=== PATIENT | female | born 1975 | race Caucasian/White ===

== ENCOUNTER 2020-02-22 03:01 | Inpatient (IN) | payer SELFPAY ==
[2020-02-22] MEDS: ziprasidone 20 mg/mL SDV (03:50)
[2020-02-22 06:18] LABS: Acetaminophen < 5.0 ug/mL (10-30); Alanine Aminotransferase 16 U/L (0-33); Albumin Level 4.5 g/dL (3.5-5.2); Alcohol Level < 10 mg/dL (0-10); Alkaline Phosphatase 95 IU/L (35-105); Anion Gap 14.9 (5-19); Aspartate Amino Transferase 25 U/L (0-32); Blood Urea Nitrogen 6 mg/dL (6-20); Calcium 9.3 mg/dL (8.5-10.5); Carbon Dioxide 30 mmol/L (22-29); Chloride 101 mmol/L (98-107); Globulin 2.5 g/dL (1.3-4.6); Glomerular Filtration Rate 109.1 mL/min (90-130); Glucose 111 mg/dL (65-115); HCG Qualitative Urine. Negative (Negative); Osmolality Calculated 294 mOsm/kg (285-295); Salicylate 16.5 mg/dL (3-10); Sodium 143 mmol/L (136-145); Total Bilirubin 0.2 mg/dL (0.15-1.2)
[2020-02-22 06:19] LABS: Potassium 2.9 mmol/L (3.5-5.1)
[2020-02-22 06:21] LABS: Basophils # 0.1 10^3/uL (0.0-0.1); Basophils % 0.8 %; Eosinophils # 0.1 10^3/uL (0.0-0.8); Eosinophils % 1.5 %; Hematocrit 38.6 % (37.0-47.0); Hemoglobin 12.6 g/dL (11.5-15.3); Lymphocytes # 2.9 10^3/uL (0.8-4.8); Lymphocytes % 32.2 %; Mean Corpuscular HGB Conc 32.6 g/dL (30.0-36.0); Mean Corpuscular Hemoglobin 33.7 pg (28.0-34.0); Mean Corpuscular Volume 103.2 fL (81-99); Monocytes # 0.7 10^3/uL (0.2-0.9); Monocytes % 7.2 %; Neutrophils # 5.26 10^3/uL (1.8-7.7); Nucleated Red Blood Cells % 0 %; Platelet Count 503 10^3/cmm (130-400); Red Blood Count 3.74 10^6/uL (4.1-5.3); Red Cell Distribution Width 12.7 % (12.1-15.1); White Blood Count 9.1 10^3/uL (4.0-10.0)
--- NOTE | 2020-02-22 06:31 | ED_ITS ---
HPI - Psych General: Stated Complaint: DEMONIC POSSESION Time Seen by Provider: 02/22/20 05:34 History of Present Illness: HPI Narrative: 44-year-old female with a history of psychiatric problems. She presents stating that she is possessed by a demon, and wants rid of the demon. She is agitated. She states that she may harm herself if she cannot rid herself of the demon. She denies any other recent illness such as cough, fever, diarrhea, etc. MD complaint: feels depressed and other Onset (ago): hour(s) Duration: constant History of same: Yes Relieving factors: none Exacerbating factors: none Context: not taking psychiatric medications Associated psychiatric symptoms: depression, suicidal ideation, auditory hallucinations and visual hallucinations Associated symptoms: Reports auditory hallucinations, visual hallucinations and delusions If self harm: admits thoughts of self harm Review of Systems Const: Denies: fever(s) or chills Eyes: Denies: change in vision or blurry vision ENMT: Denies: odynophagia or sinus pain Card: Denies: chest pain, palpitations or irregular heart rhythm Resp: Denies: dyspnea, productive cough, non-productive cough or wheezing GI: Denies: abdominal pain, nausea or vomiting : Denies: dysuria or urinary frequency Musc: Denies: neck pain or joint warmth Skin/Breast: Denies: rash or erythema Neuro: Denies: headache(s), dizziness or vertigo Psych: Reports: visual hallucinations and auditory hallucinations Physical Exam Const: GENERAL APPEARANCE: well developed ORIENTATION/CONSCIOUSNESS: Yes oriented to person and Yes oriented to place; not oriented to time HENMT: COMMON NORMALS: normocephalic, external ears normal and Normal external nose present HEAD & SCALP: normocephalic FACE & SINUS: normal facial exam NOSE: Normal external nose present and No nasal discharge present EXTERNAL EAR: Yes external ears normal Eye: COMMON NORMALS: Equal, round and reactive pupils present, EOMs intact bilaterally and conjunctivae normal EYELID: eyelids normal CONJUNCTIVA: Yes conjunctivae normal PUPIL: Yes Equal, round and reactive pupils present Neck/C-Spine: COMMON NORMALS: full ROM GENERAL: No tracheal deviation CERVICAL SPINE: Yes normal cervical lordosis and No Cervical spine tenderness Chest: COMMONS NORMALS: normal inspection of the chest CHEST: No tenderness Resp: COMMON NORMALS: clear to auscultation bilaterally EFFORT & INSPECTION: No tachypneic, No respiratory distress, No retractions, No uses accessory muscles and No tracheal deviation AUSCULTATION: clear to auscultation bilaterally, no rhonchi, no wheezes and lung sounds not diminished Cardio: COMMON NORMALS: regular rate and regular rhythm RATE: regular rate RHYTHM: regular rhythm HEART SOUNDS: no murmurs PERIPHERAL PULSES: radial pulses present GI: INSPECTION: No abdominal distension AUSCULTATION: No Hyperactive bowel sounds present and No Hypoactive bowel sounds present PALPATION: No Guarding due to palpation present (GI) and No Rigid due to palpation PERCUSSION: no dullness to percussion and no tympanic to percussion Neuro: SENSORIUM/ORIENTATION: Yes oriented to person, Yes oriented to place and No oriented to time Psych: APPEARANCE: Yes unkempt ATTITUDE: Yes paranoid and Yes evasive ACTIVITY/MOTOR BEHAVIOR: Yes psychomotor agitation, Yes fidgeting and Yes disorganized behavior SPEECH: Yes excessive MOOD & AFFECT: Yes anxious and Yes fearful THOUGHT PROCESS: Circumstantial thought process present and Loose association thought process present THOUGHT CONTENT: Yes Suicidality present and Yes delusions Skin: COMMON NORMALS: no rashes or lesions noted GENERAL SKIN EXAM: no rashes or lesions noted MDM - Psych MDM Narrative: Medical decision making narrative: Potassium is 2.9 which is being repleted. Other laboratory is benign. Awaiting a urine drug screen. Her alcohol level is nondetectable. She is otherwise medically stable for psychiatry admission. Lab Data: Labs: Lab Results 02/22/20 02/22/20 02/22/20 Range/Units 03:10 03:10 03:10 WBC 9.1 (4.0-10.0) 10^3/ uL RBC 3.74 L (4.1-5.3) 10^6/u L Hgb 12.6 (11.5-15.3) g/dL Hct 38.6 (37.0-47.0) % MCV 103.2 H (81-99) fL MCH 33.7 (28.0-34.0) pg MCHC 32.6 (30.0-36.0) g/dL RDW 12.7 (12.1-15.1) % Plt Count 503 H (130-400) 10^3/c mm MPV 10.0 (7.4-10.4) fL Neut % (Auto) 58.0 % Lymph % (Auto) 32.2 % [place] % (Auto) 7.2 % Eos % (Auto) 1.5 % Baso % (Auto) 0.8 % Neut # (Auto) 5.26 (1.8-7.7) 10^3/u L Lymph # (Auto) 2.9 (0.8-4.8) 10^3/u L [place] # (Auto) 0.7 (0.2-0.9) 10^3/u L Eos # (Auto) 0.1 (0.0-0.8) 10^3/u L Baso # (Auto) 0.1 (0.0-0.1) 10^3/u L Nucleated RBC % (a uto) 0 % Nucleated RBCs # 0.0 /100WBC Sodium 143 (136-145) mmol/L Potassium 2.9 L (3.5-5.1) mmol/L Chloride 101 (98-107) mmol/L Carbon Dioxide 30 H (22-29) mmol/L Anion Gap 14.9 (5-19) BUN 6 (6-20) mg/dL Creatinine 0.6 (0.5-0.9) mg/dL GFR Calculation 109.1 (90-130) mL/min Glucose 111 (65-115) mg/dL Calculated Osmolal ity 294 (285-295) mOsm/k g Calcium 9.3 (8.5-10.5) mg/dL Total Bilirubin 0.2 (0.15-1.2) mg/dL AST 25 (0-32) U/L ALT 16 (0-33) U/L Alkaline Phosphata se 95 (35-105) IU/L Total Protein 7.0 (6.6-8.7) g/dL Albumin 4.5 (3.5-5.2) g/dL Globulin 2.5 (1.3-4.6) g/dL HCG, Qual Negative (Negative) Salicylates 16.5 H (3-10) mg/dL Acetaminophen < 5.0 L (10-30) ug/mL Ethyl Alcohol < 10 (0-10) mg/dL Coding Level of Care Code ED Flange Machine Operator for Chg Magalis
[2020-02-22 06:40] LABS: Amphetamines Screen Urine Negative (Negative); Barbiturates Screen Urine Negative (Negative); Benzodiazepines Screen Urine Positive (Negative); Cocaine Screen Urine Negative (Negative); Opiate Screen Urine Negative (Negative); PCP Screen Urine Negative (Negative); THC Screen Urine Negative (Negative)
[2020-02-22 07:20] LABS: Protein Urine Neg (Negative); Urine Appearance Hazy (CLEAR); Urine Color Yellow (Yellow); pH Urine 9 (5-7)
[2020-02-22 07:21] LABS: Add Urine Microscopic? YES; Bilirubin Urine Neg (Negative); Blood Urine 3+ (Negative); Glucose Urine UA Norm (Normal); Ketones Urine 1+ (Negative); Leukocyte Esterase Urine Trace (Negative); Nitrate Urine Negative (Negative); Urobilinogen Urine Norm (Negative)
[2020-02-22 07:22] LABS: Add Urine Culture? No; Bacteria Urine 1+ /hpf; Mucus Urine TRACE /hpf; RBC Urine 0-4 /hpf (0-2)
[2020-02-22 07:28] VITALS: BP 114/73; PULSE 81; RESP 18; TEMP 36.9; O2SAT 98
[2020-02-22 07:43] VITALS: BP 114/73; PULSE 81; RESP 18; TEMP 36.9; O2SAT 98
--- NOTE | 2020-02-22 08:12 | PC.NURSE ---
Pt was woken up to give PO Potassium, stated she wanted to leave because she has a 3 year old child at home that is being taken care of by her 15 year old child. Pt then placed on [address] Morocho, correct address obtained from pt and [place] [employer] called for well-being check on pt's children. NPU updated on pt status.
--- NOTE | 2020-02-22 08:12 | PC.NURSE ---
patient stated she could not stay bc/ she had a 3 year old son at home being cared for by her 15 year old daughter, she was not [address] garcia made decision to hold her she then stated that her daughter in [place] would come and take care of child 22 years, also stated grandparents lived across road, will call [facility] to inform and do a well being check
[2020-02-22 08:32] VITALS: BP 128/87; PULSE 75; RESP 20; TEMP 36.8; O2SAT 100
[2020-02-22 14:00] VITALS: BP 113/79; PULSE 74; RESP 18; TEMP 36.8; O2SAT 96
--- NOTE | 2020-02-22 14:55 | P.HP_ITS ---
Providers/Chief Complaint Admitting Physician: Eugene Arthur MD Chief Complaint: DEMONIC POSSESION HPI NPU History of Present Illness Mariya Abad is a 44 year old female who presented to the emergency room with the following report: HPI - Psych General: Stated Complaint: DEMONIC POSSESION Time Seen by Provider: 02/22/20 05:34 History of Present Illness: HPI Narrative: 44-year-old female with a history of psychiatric problems. She presents stating that she is possessed by a demon, and wants rid of the demon. She is agitated. She states that she may harm herself if she cannot rid herself of the demon. She denies any other recent illness such as cough, fever, diarrhea, etc. complaint: feels depressed and other Onset (ago): hour(s) Duration: constant History of same: Yes Relieving factors: none Exacerbating factors: none Context: not taking psychiatric medications Associated psychiatric symptoms: depression, suicidal ideation, auditory hallucinations and visual hallucinations Associated symptoms: Reports auditory hallucinations, visual hallucinations and delusions If self harm: admits thoughts of self harm. And this addendum:: Dr. Chao had seen this patient and the patient was set up to be admitted I had written basic admission orders for the patient care transferred to the NPU. Staff informed me that the patient made a phone call that she has a 3-year-old at home and is being watched by a 15-year-old in no other adults. Based on that the staff call [facility] to make a hotline report to do a welfare check. In addition that patient began talking about wanting to go home I went and interviewed the patient she endorsed what Dr. Chao had verbally reported. She stated she has demons in her home and at times feels she is possessed by a demon. She states she can hear the demon and occasionally see the demon in her home. She tells me a few days ago she had a cold press loader at her home who blaster house however it did not work and the demon is still there. She also admits to having previously been hospitalized surrounding similar issues. Based on what she reported to me 96-ho ur hold affidavit was completed and filed. She was admitted to the neuropsychiatric unit for the definitive treatment of those issues. She presents today reporting that she has had previous hospital izations, [place] [facility] She presents today having recent psychosis and reporting that she has not been taking her medication. She reports previously being on multiple psychiatric medications and recently that being changed to Seroquel and propranolol but not looking to be doses that can really change or manage his psychosis. She endorses a history of addiction but denies recent addiction at a level which might impact psychosis. She reports that this demonic experience she has of having demons take over her started years ago and is unclear if it ever has been truly ameliorated by the medication. She endorses that she is does smoke, endorses limited alcohol use or marijuana use denies current illicit drug use. She is positive for benzodiazepines but cannot answer whether withdrawal from benzodiazepines could be a factor here. In keeping with her report her UDS had previously been positive for cannabis back in June and was only positive for the benzodiazepines now as well as then. She denies previous suicide attempt. Psychiatric history: As above. Substance abuse history: As above. Family history: She denies significant contributory family history. Developmental history: She denies issues with her mother's with her or /delivery. She learned to walk and talk to met her developmental milestones on time. She denies any speech therapy, learning support, emotional support or special education classes. Psychosocial history: She reports that her parents were together when she was born but eventually split up. She reports that she has 4 siblings both full and half. She reports her childhood was unremarkable and denied emotional, physical or sexual abuse then or significantly in her life. She did not graduate from high school, not in training, reports being a heterosexual with her longest relationship being over 15 years. She been 1 time and once. She has 2 children. She is never been in the . She denies major involvement in any voodoo activities. Legal history: Reports she been in group home multiple times the longest I may be being a couple months. Medical history: She denies significant contributory medical history. Meds NPU Home Medications Medication Instructions Recorded Confirmed Last Taken Type propranolol [Inderal] 10 mg PO TID 02/22/20 02/22/20 Unknown History quetiapine [Seroquel] 25 - 50 mg PO BID 02/22/20 02/22/20 Unknown History Allergies Allergy/AdvReac Type Severity Reaction Status Date / Time No Known Allergies Allergy Verified 02/22/20 05:41 Mental Status Exam MSE Comments: This is an underweight -Romanian female with limited dress, grooming and eye contact. No abnormal movements except for psychomotor retardation. Cooperative with exam in mild distress. Speech was decreased rate and volume. Mood described as depressed, affect congruent. Thought process organized. Thought content: Patient denied current suicidal or homicidal ideation, there were no delusions reported but hyperreligious delusions and concerns of demons noted, there is some auditory visual hallucinations but she does not appear to be attending to internal stimuli. Attention and concen tration were intact and memory was mostly reliable but none were formally tested. She is alert and oriented x3. Insight and judgment are limited, impulse control is impaired. Vitals/I&O/Wt Last Vital Signs Temp 98.2 F 02/22/20 21:38 Pulse 74 02/22/20 21:38 Resp 15 02/22/20 21:38 BP 133/87 02/22/20 21:38 Pulse Ox 96 02/22/20 21:38 Data NPU : 02/22/20 03:10 02/22/20 03:10 A&P Assessment and plan (1) Acute psychosis: Status: Acute (2) Benzodiazepine use agreement exists: Status: Acute (3) History of psychosis: Status: Acute Additional A&P Information This is a 44-year-old female with a history of psychosis and addiction who presents with a UDS only positive for benzodiazepines endorsing struggles with demons off of her medication. 1. Continue current medication. We will start Abilify 10 mg p.o. every morning in the morning. 2. Continue every 15 minute checks for safety. 3. Encourage individual, group and milieu therapy. 4. Explore the possible impact of benzodiazepines on her mental status as well as identify whether there might be agents that are not detected by our drug screens that could be impacting her. Involuntary Hold Information 96 Hour Hold: 96 Hour Involuntary Admission: Yes 96 Hour Hold Ending Date: 02/29/20 96 Hour Hold Ending Time: 08:00 Attestations NPU Medical Necessity Statement*: Inpatient hospitalization is medically necessary and the clinically appropriate intervention at this time. We will monitor medications and make changes as indicated. She will be in the hospital for over 2 midnights. Likely length of stay 3 to 5 days. Coding Level of Care Code Acute Tray Line Supervisor for Rupa Blancas Diagnoses Acute psychosis F23 Benzodiazepine use agreement exists Z79.899 History of psychosis Z86.59
[2020-02-22] MEDS: trazodone 50 mg Tablet PO (19:30)
[2020-02-22] MEDS: hyDROXYzine 25 mg Capsule 50 MG PO (19:30)
[2020-02-22 21:38] VITALS: BP 133/87; PULSE 74; RESP 15; TEMP 36.8; O2SAT 96
[2020-02-23 06:00] VITALS: BP 128/81; PULSE 75; RESP 14; TEMP 36.9; O2SAT 95
[2020-02-23] MEDS: ARIPiprazole 10 mg Tablet PO (08:55)
[2020-02-23] MEDS: hyDROXYzine 25 mg Capsule 50 MG PO ×2 (09:32→22:52)
--- NOTE | 2020-02-23 11:20 | PM.NPN ---
Subjective NPU Subjective: Interval history: Summer presents today reporting that she is feeling a little better with the medication. She is getting a benzodiazepine from a local provider. We agreed that we would have the treatment team attempt to confirm the medication and if she is on it resume that medication. Otherwise she reports that things are going okay and that she is hoping the Abilify will be helpful because she feels like her medication be changed frequently and the only thing that she feels has been effective had not been done. Otherwise she is sleeping okay and eating well. Mental Status Exam MSE Comments: This is an underweight -Equatorial [place] female with limited dress, grooming and eye contact. No abnormal movements except for psychomotor retardation. Cooperative with exam in no acute distress. Speech was decreased rate and volume. Mood described as depressed, affect congruent. Thought process organized. Thought content: Patient denied current suicidal or homicidal ideation, there were no delusions reported but hyperreligious delusions and concerns of demons noted, there is some auditory visual hallucinations but she does not appear to be attending to internal stimuli. Attention and concentration were intact and memory was mostly reliable but none were formally tested. She is alert and oriented x3. Insight and judgment are limited, impulse control is impaired. Vitals/I&O/Wt Last Vital Signs Temp 98.1 F 02/23/20 20:25 Pulse 86 02/23/20 20:25 Resp 17 02/23/20 20:25 BP 144/82 02/23/20 20:25 Pulse Ox 96 02/23/20 20:25 Data NPU : 02/22/20 03:10 02/22/20 03:10 A&P Additional A&P Information (1) Acute psychosis: (2) Benzodiazepine use agreement exists: (3) History of psychosis: This is a 44-year-old female with a history of psychosis and addiction who presents with a UDS only positive for benzodiazepines endorsing struggles with demons off of her medication. 1. Continue current medication. Identify where she is giving her benzodiazepine from and verify that medication and restart. 2. Continue every 15 minute checks for safety. 3. Encourage individual, group and milieu therapy. 4. Explore the possible impact of benzodiazepines on her mental status as well as identify whether there might be agents that are not detected by our drug screens that could be impacting her. Involuntary Hold Information 96 Hour Hold: 96 Hour Involuntary Admission: Yes 96 Hour Hold Ending Date: 02/29/20 96 Hour Hold Ending Time: 08:00 Attestations NPU Medical Necessity Statement*: Inpatient hospitalization is medically necessary and the clinically appropriate intervention at this time. We will monitor medications and make changes as indicated. Likely length of stay 3 to 5 days. Coding Level of Care Code Acute Cardiac Nurse for Rupa Blancas
[2020-02-23 14:00] VITALS: BP 133/88; PULSE 68; RESP 20; TEMP 36.9; O2SAT 96
[2020-02-23 20:25] VITALS: BP 144/82; PULSE 86; RESP 17; TEMP 36.7; O2SAT 96
[2020-02-23] MEDS: trazodone 50 mg Tablet PO (22:52)
[2020-02-24 06:00] VITALS: BP 110/65; PULSE 66; RESP 15; TEMP 36.7; O2SAT 95
[2020-02-24] MEDS: ARIPiprazole 10 mg Tablet PO (09:26)
[2020-02-24 14:00] VITALS: BP 131/84; PULSE 71; RESP 16; TEMP 36.7; O2SAT 97
--- NOTE | 2020-02-24 15:46 | P.PN_ITS ---
Subjective NPU Subjective: Interval history: Sepsis today reporting some improvement in the psychotic thoughts but still endorsing anxiety. She is isolative which she acknowledges, but we were able to identify that she is taking Xanax prescribed with a refill still available. We discussed resuming some level of that prescription while she is in the hospital. Otherwise she reports that she is feeling a little better and will likely feel much better when she has had a resumption of her prescription. Mental Status Exam MSE Comments: This is an underweight -Vincentian female with limited gillian ss, grooming and eye contact. No abnormal movements except for psychomotor retardation. Cooperative with exam in mild distress. Speech was decreased rate and volume. Mood described as a little better but anxious, affect congruent. Thought process organized. Thought content: Patient denied current suicidal or homicidal ideation, there were no delusions reported but hyperreligious delusions and concerns of demons noted, there is some auditory and visual hallucinations reported but she does not appear to be attending to internal stimuli. Attention and concentration were intact and memory was mostly reliable but none were formally tested. She is alert and oriented x3. Insight and judgment are limited, impulse control is impaired. Vitals/I&O/Wt Last Vital Signs Temp 98.1 F 02/24/20 14:00 Pulse 71 02/24/20 14:00 Resp 16 02/24/20 14:00 BP 131/84 02/24/20 14:00 Pulse Ox 97 02/24/20 14:00 Data NPU : 02/22/20 03:10 02/22/20 03:10 A&P Additional A&P Information (1) Acute psychosis: (2) Benzodiazepine use agreement exists: (3) History of psychosis: This is a 44-year-old female with a history of psychosis and addiction who presents with a UDS only positive for benzodiazepines endorsing struggles with demons off of her medication. 1. Continue current medication. Except: Restart Xanax 0.5 mg p.o. 3 times andres y as needed as she has an outpatient prescription for 1-2 p.o. 3 times daily #100 dispensed per prescription. 2. Continue every 15 minute checks for safety. 3. Encourage individual, group and milieu therapy. 4. Explore the possible impact of benzodiazepines on her mental status as well as identify whether there might be agents that are not detected by our drug screens that could be impacting her. Involuntary Hold Information 96 Hour Hold: 96 Hour Involuntary Admission: Yes 96 Hour Hold Ending Date: 02/29/20 96 Hour Hold Ending Time: 08:00 Attestations NPU Medical Necessity Statement*: Inpatient hospitalization is medically necessary and the clinically appropriate intervention at this time. We will monitor medications and make changes as indicated. Likely length of stay 2-4 days. Coding Level of Care Code Acute Accounts Administrator for Rupa Blancas
--- NOTE | 2020-02-24 18:14 | PC.NURSE ---
Addendum entered by Debra Mcelroy LPN 02/24/20 18:15: THEY ALSO STATED PT HAS 1 REFILL LEFT ON XANAX. LAST DISPENSED ON 01/29/20 AND THEY GAVE HER #100 TABLETS Original Note: [facility] [place] CONTACTED PER PHYSICIAN REQUEST. THIS NURSE INQUIRED ABOUT XANAX SCRIPT. THEY SAID PT LAST FILLED XANAX SCRIPT 01/29/20, ORDER FOR XANAX 0.5 MG 1-2 TABS TID PRN FOR ANXIETY. [address] ADAMS NOTIFIED
[2020-02-24] MEDS: hyDROXYzine 25 mg Capsule 50 MG PO (20:39)
[2020-02-24] MEDS: ALPRAZolam 0.5 mg Tablet PO (20:39)
[2020-02-24 21:49] VITALS: BP 134/84; PULSE 73; RESP 16; TEMP 36.4; O2SAT 93
--- NOTE | 2020-02-24 23:06 | PC.NURSE ---
ASSESSMENT PT DENIES SI/HI. PT CONFIRMS AH THAT SEEMS LIKE TORMENTING CHATTER AND DENIES VH AT THIS TIME. pT REPORTS SHE STOPPED DRINKING ABOUT 3 WEEKS AGO. SHE STATES THAT THESE VOICES HAVE BEEN IN HER HEAD FOR THE LAST 4 YEARS. SHE JOKINGLY SAID I DONT WANT TO SHARE THINGS WITH YALL BECAUSE I WANT TO GO HOME. PT WAS INFORMED THAT SHE NEEDED TO BE HONEST, OPEN, AND FORTHRIGHT WITH HOW HER PROGRESS IS COMING ALONG AND THE EFFECTIVENESS OF TREATMENT TO PREVENT A RETURN TO THE UNIT. SHE IS ENCOURAGED TO SPEAK WITH THE DOCTOR IN THE MORNING REGARDING HOW SHE IS PROGRESSING
[2020-02-25 06:00] VITALS: BP 132/84; PULSE 77; RESP 16; TEMP 36.5; O2SAT 96
[2020-02-25] MEDS: ARIPiprazole 10 mg Tablet PO (09:12)
[2020-02-25] MEDS: ALPRAZolam 0.5 mg Tablet PO ×2 (10:59→21:34)
[2020-02-25 13:32] VITALS: BP 118/82; PULSE 83; RESP 18; TEMP 36.8; O2SAT 98
[2020-02-25] MEDS: ARIPiprazole 10 mg Tablet 5 MG PO (14:08)
--- NOTE | 2020-02-25 15:35 | P.PN_ITS ---
Subjective NPU Subjective: Interval history: Summer presents today reporting that she is feeling a little better. She feels better to some degree and reports she is feeling isolative management where she was fairly convinced that she did not get her medication. She I had discussed the risk benefits and alternatives of increasing the Abilify to 15 mg total and she understood and agreed to proceed as is documented in this note. She talked about her inquiring about her condition and we discussed the possibility of discharge in the next 48 hours. Mental Status Exam MSE Comments: This is an underweight -Emirati female with limited dress, grooming and eye contact. No abnormal movements except for psychomotor retardation. Cooperative with exam in mild distress. Speech was decreased rate and volume. Mood described as bored, affect congruent. Thought process organized. Thought content: Patient denied current suicidal or homicidal ideation, there were no delusions reported but hyperreligious delusions and concerns of demons noted, but diminishing, there is some auditory and visual hallucinations reported but she does not appear to be attending to internal stimuli. Attention and concentration were intact and memory was mostly reliable but none were formally tested. She is alert and oriented x3. Insight and judgment are limited, but improving impulse control is improving. Vitals/I&O/Wt Last Vital Signs Temp 97.7 F 02/25/20 06:00 Pulse 77 02/25/20 06:00 Resp 16 02/25/20 06:00 BP 132/84 02/25/20 06:00 Pulse Ox 96 02/25/20 06:00 Data NPU : 02/22/20 03:10 02/22/20 03:10 A&P Additional A&P Information (1) Acute psychosis: (2) Benzodiazepine use agreement exists: (3) History of psychosis: This is a 44-year-old female with a history of psychosis and addiction who presents with a UDS only positive for benzodiazepines endorsing struggles with demons off of her medication. 1. Continue current medication. Except: Increase Abilify to 15 mg p.o. every morning 2. Continue every 15 minute checks for safety. 3. Encourage individual, group and milieu therapy. 4. Begin working with social work for discharge planning. Involuntary Hold Information 96 Hour Hold: 96 Hour Involuntary Admission: Yes 96 Hour Hold Ending Date: 02/29/20 96 Hour Hold Ending Time: 08:00 Attestations NPU Medical Necessity Statement*: Inpatient hospitalization is medically necessary and the clinically appropriate intervention at this time. We will monitor medications and make changes as indicated. Likely length of stay 1-3 days. Coding Level of Care Code Acute Psychology Teacher for Rupa Blancas
[2020-02-25 20:16] VITALS: BP 123/82; PULSE 68; RESP 17; TEMP 36.8; O2SAT 95
[2020-02-25] MEDS: hyDROXYzine 25 mg Capsule 50 MG PO (21:34)
[2020-02-26] MEDS: hyDROXYzine 25 mg Capsule 50 MG PO (03:03)
[2020-02-26 05:27] VITALS: BP 94/62; PULSE 73; RESP 16; TEMP 37.1; O2SAT 97
[2020-02-26] MEDS: ARIPiprazole 30 mg Tablet 15 MG PO (09:19)
[2020-02-26] MEDS: ALPRAZolam 0.5 mg Tablet PO (09:23)
--- NOTE | 2020-02-26 09:24 | PC.NURSE ---
PRN XANAX ADMINISTERED XANAX 0.5MG FOR PT C/O INCREASING ANXIETY. WILL MONITOR FOR MEDICATION EFFECTIVENESS.
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
[2020-02-26 12:21] VITALS: BP 94/62; PULSE 73; RESP 16; TEMP 37.1; O2SAT 97
== END 2020-02-26 13:13 | disposition home or self-care (01) | DRG 885 ==
LOC: ER 06:37 → NP 07:08
PROVIDERS: Admitting Provider Psychiatry & Neurology Psychiatry; Emergency Provider Emergency Medicine; Visit Provider Psychiatry & Neurology Psychiatry
DX: F23 Brief psychotic disorder (principal); R45.851 Suicidal ideations; Z91.14 Patient's other noncompliance with medication regimen; F17.210 Nicotine dependence, cigarettes, uncomplicated; F41.8 Other specified anxiety disorders
CPT/HCPCS: 12345; 80053; 80306; 80307; 81001; 81025; 85025; 99281; J3486

== ENCOUNTER 2024-01-29 16:30 | Inpatient (IN) | payer MEDICAID, SELFPAY ==
[2024-01-29] VITALS (7 sets, daily range): BP systolic 125–155; BP diastolic 80–125; PULSE 71–98; RESP 16–19; TEMP 36.6–36.8; O2SAT 96–98; BMI 20.3
--- NOTE | 2024-01-29 17:20 | PC.NURSE ---
pt refused urine cath for urine sample
[2024-01-29 17:56] LABS: Basophils # 0.1 10^3/uL (0.0-0.1); Basophils % 0.6 %; Eosinophils # 0.2 10^3/uL (0.0-0.8); Eosinophils % 1.2 %; Lymphocytes # 3.7 10^3/uL (0.8-4.8); Lymphocytes % 28.2 %; Mean Corpuscular HGB Conc 31.5 g/dL (30-55); Mean Corpuscular Hemoglobin 27.9 pg (27-33); Mean Corpuscular Volume 88.4 fl (85-98); Mean Platelet Volume 10.7 fL (7.4-10.4); Monocytes # 0.7 10^3/uL (0.2-0.9); Monocytes % 5.6 %; Neutrophils # 8.41 10^3/uL (1.8-7.7); Neutrophils % 64.1 %; Nucleated Red Blood Cells % 0 %; Platelet Count 333 10^3/cmm (157-399); Red Blood Count 4.41 10^6/uL (3.85-5.65); Red Cell Distribution Width 14.8 % (12.1-15.1); White Blood Count 13.13 10^3/uL (3.29-11.43)
[2024-01-29 18:16] LABS: Alanine Aminotransferase 10 U/L (0-33); Albumin Level 4.2 g/dL (3.5-5.2); Alkaline Phosphatase 110 U/L (35-105); Anion Gap 13.8 (5-19); Aspartate Amino Transferase 14 U/L (0-32); Blood Urea Nitrogen 9 mg/dL (6-20); Carbon Dioxide 22 mmol/L (22-29); Chloride 107 mmol/L (98-107); Creatinine Clr Calc Pharmacy 114.8535; Globulin 2.4 g/dL (1.3-4.6); Glomerular Filtration Rate 132.2 mL/min (90-130); Glucose 85 mg/dL (65-115); Osmolality Calculated 286 mOsm/kg (285-295); Potassium 3.8 mmol/L (3.5-5.1); Sodium 139 mmol/L (136-145); Total Bilirubin 0.3 mg/dL (0.15-1.2); Total Protein 6.6 g/dL (6.6-8.7)
[2024-01-29 18:18] LABS: Acetaminophen < 5.0 ug/mL (10-30); Alcohol Level < 10 mg/dL (0-10); Salicylate < 0.3 mg/dL (3-10)
[2024-01-29 18:47] LABS: Slide Review Slide Review Perform
--- NOTE | 2024-01-29 19:28 | PC.NURSE ---
96 Hour Involuntary Hold Patient Rights have been read to the patient and a copy of the same has been provided to her. Systems Requirements Planner Chaim was present at bedside at the time of presentation of Rights.
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
[2024-01-29] MEDS: LORazepam 2 mg/mL INJ 1 mL IM (20:25)
[2024-01-30] VITALS (8 sets, daily range): BP systolic 106–145; BP diastolic 66–88; PULSE 75–101; RESP 15–18; TEMP 36.7–37.4; O2SAT 95–98
[2024-01-30] MEDS: OLANZapine 5 mg ODT PO (01:14)
--- NOTE | 2024-01-30 01:16 | PC.NURSE ---
Patient woke up stating that there were Spirits under her bed . We reassured her of her safety and suggested that she may take some zyprexa for her Anxiety she complied taking Zyprexa 5mg SL.
[2024-01-30] MEDS: hyDROXYzine 25 mg Capsule 50 MG PO (03:11)
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
[2024-01-30] MEDS: atorvastatin 40 mg Tablet 20 MG PO (09:38)
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
[2024-01-30] MEDS: haloperidol inj 5 mg/mL INJ 1 mL IM (10:29)
[2024-01-30] MEDS: diphenhydrAMINE 50 mg/mL SDV 1mL IM (10:29)
[2024-01-30] MEDS: LORazepam 2 mg/mL INJ 1 mL IM (10:29)
--- NOTE | 2024-01-30 11:46 | PC.OT ---
OT EVALUATION HELD PER NURSING REQUEST DUE TO PATIENT AGITATION AND IN SECLUSION.
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
--- NOTE | 2024-01-30 14:47 | PC.NURSE ---
Patient's daughter Josselin [facility] number [phone]
--- NOTE | 2024-01-30 14:58 | PC.NURSE ---
PT TO NURSES STATION STATES SHE TAKES XANAX 1 MG PO TID PRN FOR ANXIETY AND STATES SHE GETS IT FROM DR. JONES AT [facility].. SPOKE WITH THE NURSE FROM THE CLINIC AND SHE VERIFIED MEDICATIONS FOLLOWS. XANAX 1 MG PO TID ANXIETY, REMERON 30 MG PO AT BEDTIME, LOVASTATIN 20 MG PO DAILY, ALBUTEROL 90 MCGS NEEDED. REPORTED ABOVE INFORMATION TO DR. ADAMS AND NEW ORDERS WERE RECEIVED TO START XANAX 0.5 MG PO TID ANXIETY PRN. LOVASTATIN AND REMERON WERE PREVIOUSLY STARTED ON ADMISSION. PT EDUCATED ON NEW ORDERS AND SUPPORT WAS VOICED, EDUCATION PROVIDED.
[2024-01-30] MEDS: mirtazapine 30 mg Tablet PO (21:11)
[2024-01-30] MEDS: ALPRAZolam 0.5 mg Tablet PO (21:12)
[2024-01-30] MEDS: haloperidol 5 mg Tablet PO (21:12)
--- NOTE | 2024-01-31 06:47 | PC.NURSE ---
pt ref vs resp 16 charge notified
[2024-01-31] MEDS: ALPRAZolam 0.5 mg Tablet PO ×3 (08:34→21:56)
[2024-01-31] MEDS: atorvastatin 40 mg Tablet 20 MG PO (08:34)
[2024-01-31] MEDS: nicotine 2 mg Gum BUCCAL (13:17)
[2024-01-31 14:00] VITALS: BP 111/76; PULSE 80; RESP 16; TEMP 36.5; O2SAT 99
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
[2024-01-31 19:33] VITALS: BP 110/70; PULSE 67; RESP 18; TEMP 36.7; O2SAT 98
[2024-01-31 21:12] LABS: Amphetamines Screen Urine Negative (Negative); Barbiturates Screen Urine Negative (Negative); Benzodiazepines Screen Urine Positive (Negative); Cocaine Screen Urine Negative (Negative); Opiate Screen Urine Negative (Negative); PCP Screen Urine Negative (Negative); THC Screen Urine Negative (Negative)
[2024-01-31] MEDS: paliperidone ER 6 mg Tablet PO (21:55)
[2024-01-31] MEDS: mirtazapine 30 mg Tablet PO (21:55)
[2024-01-31] MEDS: trazodone 50 mg Tablet PO (21:56)
[2024-01-31] MEDS: haloperidol 5 mg Tablet PO (22:55)
[2024-01-31] MEDS: acetaminophen 325 mg Tablet 650 MG PO (22:55)
[2024-02-01 06:00] VITALS: BP 120/79; PULSE 78; RESP 18; TEMP 36.8; O2SAT 97
[2024-02-01] MEDS: atorvastatin 40 mg Tablet 20 MG PO (08:39)
[2024-02-01] MEDS: ALPRAZolam 0.5 mg Tablet PO ×3 (08:42→20:40)
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
[2024-02-01 13:57] VITALS: BP 105/69; PULSE 77; RESP 16; TEMP 36.8; O2SAT 98
[2024-02-01] MEDS: nicotine 2 mg Gum BUCCAL (13:58)
[2024-02-01 20:09] VITALS: BP 104/70; PULSE 74; RESP 18; TEMP 36.6; O2SAT 98
[2024-02-01] MEDS: paliperidone ER 6 mg Tablet PO (20:40)
[2024-02-01] MEDS: mirtazapine 30 mg Tablet PO (20:40)
[2024-02-01] MEDS: hyDROXYzine 25 mg Capsule 50 MG PO (20:40)
[2024-02-02] MEDS: haloperidol 5 mg Tablet PO ×2 (01:07→21:13)
[2024-02-02 06:00] VITALS: BP 140/80; PULSE 77; RESP 16; TEMP 36.7; O2SAT 99
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
[2024-02-02] MEDS: nicotine 2 mg Gum BUCCAL ×2 (09:15→16:40)
[2024-02-02] MEDS: ALPRAZolam 0.5 mg Tablet PO ×2 (09:16→20:19)
[2024-02-02] MEDS: atorvastatin 40 mg Tablet 20 MG PO (09:16)
[2024-02-02] MEDS: OLANZapine 5 mg ODT PO ×2 (10:05→20:19)
[2024-02-02 14:00] VITALS: BP 105/72; PULSE 80; RESP 18; TEMP 37; O2SAT 97
[2024-02-02] MEDS: ALPRAZolam 0.5 mg Tablet 1 MG PO (14:23)
[2024-02-02] MEDS: acetaminophen 325 mg Tablet 650 MG PO ×2 (14:57→21:13)
[2024-02-02 19:57] VITALS: BP 94/60; PULSE 79; RESP 15; TEMP 36.8; O2SAT 95
[2024-02-02] MEDS: paliperidone ER 6 mg Tablet PO (20:19)
[2024-02-02] MEDS: mirtazapine 30 mg Tablet PO (20:20)
[2024-02-03] MEDS: hyDROXYzine 25 mg Capsule 50 MG PO ×3 (05:29→20:52)
[2024-02-03 06:15] VITALS: RESP 20
[2024-02-03] MEDS: nicotine 2 mg Gum BUCCAL ×3 (06:36→18:44)
[2024-02-03] MEDS: ALPRAZolam 0.5 mg Tablet PO ×2 (08:28→20:51)
[2024-02-03] MEDS: atorvastatin 40 mg Tablet 20 MG PO (08:28)
[2024-02-03] MEDS: OLANZapine 5 mg ODT PO (08:55)
[2024-02-03] MEDS: acetaminophen 325 mg Tablet 650 MG PO ×2 (08:55→20:56)
--- NOTE | 2024-02-03 08:56 | PC.NURSE ---
PRN ZYPREXA ZYDIS 5 MG GIVEN SUBLINGUAL PER PT C/O INCREASED AGITATION. UPSET THAT THE PHYSICIAN IS CHANGING AROUND HER XANAX
--- NOTE | 2024-02-03 11:26 | PC.NURSE ---
PRN VISTARIL 50 MG GIVEN PO PER PT C/O STATED ANXIETY
[2024-02-03] MEDS: ALPRAZolam 0.5 mg Tablet 1 MG PO (14:04)
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
[2024-02-03 19:38] VITALS: BP 114/79; PULSE 80; RESP 15; TEMP 36.8; O2SAT 99
[2024-02-03] MEDS: mirtazapine 30 mg Tablet PO (20:50)
[2024-02-03] MEDS: paliperidone ER 6 mg Tablet PO (20:50)
[2024-02-04] MEDS: hyDROXYzine 25 mg Capsule 50 MG PO ×2 (04:01→09:26)
[2024-02-04] MEDS: acetaminophen 325 mg Tablet 650 MG PO (04:03)
[2024-02-04 06:00] VITALS: BP 138/77; PULSE 81; RESP 16; TEMP 36.9; O2SAT 98
[2024-02-04] MEDS: nicotine 2 mg Gum BUCCAL ×2 (06:59→15:34)
[2024-02-04] MEDS: ALPRAZolam 0.5 mg Tablet PO (09:26)
[2024-02-04] MEDS: atorvastatin 40 mg Tablet 20 MG PO (09:27)
[2024-02-04] MEDS: ALPRAZolam 0.5 mg Tablet 1 MG PO (14:04)
[2024-02-04 14:50] VITALS: BP 138/77; PULSE 81; RESP 16; TEMP 36.9; O2SAT 98
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
== END 2024-02-04 16:33 | disposition home or self-care (01) | DRG 885 ==
LOC: ER 20:17 → NP 21:29
PROVIDERS: Admitting Provider Psychiatry & Neurology Psychiatry; Emergency Provider Emergency Medicine; Visit Provider Psychiatry & Neurology Psychiatry
DX: F23 Brief psychotic disorder (principal); R63.6 Underweight; Z68.21 Body mass index [BMI] 21.0-21.9, adult; Z79.899 Other long term (current) drug therapy
CPT/HCPCS: 80053; 80306; 80307; 85025; 96372; 96374; 96375; 97150; 97165; 99285; J1200; J1630; J2060